=== PATIENT | male | born 1990 | race Caucasian/White ===

== ENCOUNTER 2024-04-03 16:48 | Emergency (ER) | payer OTHER, SELFPAY ==
[2024-04-03 16:52] VITALS: BP 157/88; PULSE 120; TEMP 37.1; O2SAT 98; BMI 32.0
--- NOTE | 2024-04-03 17:17 | PC.NURSE ---
the director of the facility calls back and states they will take the patient back if he does return to their facility at that the alcohol level was 0.152 at that time of [facility]
--- NOTE | 2024-04-03 17:18 | ED.GENADUL1 ---
Documented by User: Spring Prasad 04/03/24 17:44 HPI HPI - General Adult General Chief complaint: Recheck/Abnormal Lab/Rx Stated complaint: RECHECK, GRACIE Time Seen by Provider: 04/03/24 17:04 Source: patient Mode of arrival: walk-in Limitations: no limitations History of Present Illness HPI narrative: 33 year old male presents to er today for medical clearance for admission to [facility]. pt states he drinks at least a liter of vodka daily. he states he has had approx 1/2 liter today. pt was at [facility] earlier and reported to have left facility when they began to question him about personal family history. he is alert and denies suicidal or suicidal ideation. Related Data Allergies Allergy/AdvReac Type Severity Reaction Status Date / Time No Known Drug Allergies Allergy Verified 04/03/24 16:52 Opioid HPI Opioid Management Most Recent Opioid Data: No Data to Display Review of Systems ROS Narrative REVIEW OF SYSTEMS: Unless otherwise stated in this report the patient's positive and negative responses for review of systems for constitutional, eyes, ENT, cardiovascular, respiratory, gastrointestinal, neurological, , musculoskeletal, and integument systems and related systems to the presenting problem are either stated in the history of present illness or were not pertinent or were negative for the symptoms and/or complaints related to the presenting medical problem. Exam Narrative Exam Narrative: vital signs reviewed and patient is not hypoxic. ? General: The patient appears intoxicated Patient is resting comfortably on cart. Not toxic, lethargic, or listless. Skin: Warm, dry, no pallor noted. There is no rash noted. Head: Normocephalic, atraumatic Eye: Normal conjunctiva, no drainage, EOMI. PERRL. Ears, Nose, Mouth, and Throat: oral mucosa is moist. Nares patent. Mouth without vesicles. Ear canals patent. Tm's without Erythema Cardiovascular: Regular Rate and Rhythm, no murmurs, gallops, or rubs Respiratory: Patient is in no distress, no accessory muscle use, lungs are clear to auscultation, no wheezing, rales or rhonchi Back: non-tender, no CVA tenderness bilaterally to percussion. NO CTLS midline or paracervicl tenderness to palpation. GI: Soft, no tenderness to palpation, no masses appreciated. No rebound, guarding, or rigidity noted. Musculoskeletal: The patient has full range of motion of all extremities and joints with no difficulty. Patient has no motor, no sensory deficits. Neurological: A&O intoxicated, alert, no neurologic deficits Psychiatric: agitated under influence of alcohol, denies suicidal or homicidal ideation Constitutional Vital Signs, click to edit/add: Last Vital Signs Temp 98.7 F 04/03/24 16:52 Pulse 120 H 04/03/24 16:52 Resp 18 04/03/24 16:52 BP 157/88 H 04/03/24 16:52 Pulse Ox 98 04/03/24 16:52 O2 Del Method Room Air 04/03/24 16:52 Course Vital Signs Vital signs: Vital Signs Temperature 98.7 F 04/03/24 16:52 Pulse Rate 120 H 04/03/24 16:52 Respiratory Rate 18 04/03/24 16:52 Blood Pressure 157/88 H 04/03/24 16:52 Pulse Oximetry 98 04/03/24 16:52 Oxygen Delivery Method Room Air 04/03/24 16:52 Temperature 98.7 F 04/03/24 16:52 Pulse Rate 120 H 04/03/24 16:52 Respiratory Rate 18 04/03/24 16:52 Blood Pressure 157/88 H 04/03/24 16:52 Pulse Oximetry 98 04/03/24 16:52 Oxygen Delivery Method Room Air 04/03/24 16:52 Medical Decision Making MDM Narrative Medical decision making narrative: 33 year old male presents to er today for medical clearance for admission to [facility]. pt states he drinks at least a liter of vodka daily. he states he has had approx 1/2 liter today. pt was at [facility] earlier and reported to have left facility when they began to question him about personal family history. he is alert and denies suicidal or suicidal ideation. pt asked how long his stay would be here in the er. pt was angry he had to wait for labs prior to discharge and walked out. pt eloped twice while here in the er. nursing staff and security were able to bring him back inside. IV was removed and pt then eloped, stating he will just go back to [facility] Discharge Plan Discharge Stand Alone Forms: Portal Instructions Chief Complaint: Recheck/Abnormal Lab/Rx Clinical Impression: Alcohol intoxication Patient Disposition: Left Against Medical Advice Time of Disposition Decision: 17:17 Condition: Good Print Language: [place] Instructions: Alcohol Intoxication (ED) Referrals: Physician,Non-Staff, [Primary Care Provider] - 1 week Discharge Date/Time: 04/03/24 17:46 Documented by User: Lauri Claros MD 04/03/24 21:55 HPI HPI - General Adult General Chief complaint: Recheck/Abnormal Lab/Rx Stated complaint: RECHECK, LEGENDS Time Seen by Provider: 04/03/24 17:04 Related Data Allergies Allergy/AdvReac Type Severity Reaction Status Date / Time No Known Drug Allergies Allergy Verified 04/03/24 16:52 Opioid HPI Opioid Management Most Recent Opioid Data: No Data to Display Exam Constitutional Vital Signs, click to edit/add: Last Vital Signs Temp 98.7 F 04/03/24 16:52 Pulse 120 H 04/03/24 16:52 Resp 18 04/03/24 16:52 BP 157/88 H 04/03/24 16:52 Pulse Ox 98 04/03/24 16:52 O2 Del Method Room Air 04/03/24 16:52 Course Vital Signs Vital signs: Vital Signs Temperature 98.7 F 04/03/24 16:52 Pulse Rate 120 H 04/03/24 16:52 Respiratory Rate 18 04/03/24 16:52 Blood Pressure 157/88 H 04/03/24 16:52 Pulse Oximetry 98 04/03/24 16:52 Oxygen Delivery Method Room Air 04/03/24 16:52 Temperature 98.7 F 04/03/24 16:52 Pulse Rate 120 H 04/03/24 16:52 Respiratory Rate 18 04/03/24 16:52 Blood Pressure 157/88 H 04/03/24 16:52 Pulse Oximetry 98 04/03/24 16:52 Oxygen Delivery Method Room Air 04/03/24 16:52 Medical Decision Making MDM Narrative Medical decision making narrative: 33 year old male presents to er today for medical clearance for admission to [facility]. pt states he drinks at least a liter of vodka daily. he states he has had approx 1/2 liter today. pt was at [facility] earlier and reported to have left facility when they began to question him about personal family history. he is alert and denies suicidal or suicidal ideation. pt asked how long his stay would be here in the er. pt was angry he had to wait for labs prior to discharge and walked out. pt eloped twice while here in the er. nursing staff and security were able to bring him back inside. IV was removed and pt then eloped, stating he will just go back to [facility] Patient eloped from the emergency room. Patient came into the ER, left and walked outside, came back into the ER again, left and went outside for a second time then came back into the ER for a third time so his IV could be removed. Medical screening evaluation was initially performed, patient officially eloped from the ER when he kept coming and going in and out of the ER. I am not sure what patient was doing outside when he kept leaving. Patient has a functional decision-making capacity to refuse care, does not appear to be overly intoxicated. It was noted by [facility] that patient had a alcohol level 0.152 earlier prior to arrival. The patient is oriented to person, place, and time, demonstrating all bowden elements of capacity to make decisions regarding the medical care offered. The patient speaks coherently and exhibits no evidence of having an altered level of consciousness or significant alcohol or significant drug intoxication to a point that would impair ability to delineate a choice. He/she is able to ambulate without difficulty. The patient demonstrates understanding and appreciation of the relevant information of the nature their medical condition, as well as the risks, benefits, and treatment alternatives (including nontreatment), Consequences of refusing care, and can appropriately communicative rational reasoning about their choice of care options. Patient is aware of a suspected diagnosis suggested by history and exam. The risks of refusing recommended care that were disclosed and acknowledged by the patient including , unforeseen complications, neurological dysfunction, permanent mental impairment, loss of limb, loss of sexual function, loss of current lifestyle, worsening chronic condition, long-term disability were disclosed. The patient understands they are welcome to return to the hospital anytime to receive the recommended care or any other care at any time, regardless of their ability to pay for such care. Discharge instructions were provided to the patient along with necessary prescriptions if indicated. Patient has officially eloped and Walking outside several times from emergency room without telling anybody. Discharge Plan Discharge Stand Alone Forms: Portal Instructions Chief Complaint: Recheck/Abnormal Lab/Rx Clinical Impression: Alcohol intoxication Patient Disposition: Left Against Medical Advice Time of Disposition Decision: 17:17 Condition: Good Print Language: [place] Instructions: Alcohol Intoxication (ED) Referrals: Physician,Non-Staff, MD [Primary Care Provider] - 1 week Discharge Date/Time: 04/03/24 17:46
== END 2024-04-03 17:46 | disposition left against medical advice (07) ==
PROVIDERS: Emergency Provider Emergency Medicine
DX: F10.129 Alcohol abuse with intoxication, unspecified (principal); Z53.29 Procedure and treatment not carried out because of patient's decision for other reasons
CPT/HCPCS: 99282